=== PATIENT | male | born 1940 | race Caucasian/White ===

== ENCOUNTER → 2018-01-26 | Outpatient (CLI) | payer MEDICARE, OTHER ==
[~2018-01-26] MED LIST: ALPRAZOLAM0.5 M3 PO; ASPIRIN81 M1 PO
== END | disposition home or self-care (01) ==
LOC: US 02:09
DX: R10.10 Upper abdominal pain, unspecified (principal); R19.8 Other specified symptoms and signs involving the digestive system and abdomen; K21.9 Gastro-esophageal reflux disease without esophagitis; Z86.010 Personal history of colon polyps

== ENCOUNTER → 2018-03-20 | Day surgery (SDC) | payer MEDICARE, OTHER ==
[~2018-03-20] VITALS: Ht 185.4 cm; Wt 83.9 kg
[~2018-03-20] MED LIST changes: +CARDIZEM LA180 MG PO; +ELIQUIS5 M1 PO
--- NOTE | ~2018-03-20 | PROC NOTE ---
[place], [place] PROCEDURE NOTE NAME: [facility] #: [id number] UNIT #: [id number] ROOM: DOCTOR: BLAIR PRAKASH MD BIRTHDATE: [birth year] DOS: 03/20/2018 PROCEDURES: 1. Esophagogastroduodenoscopy and biopsy. 2. Colonoscopy. INDICATIONS: Abdominal pain, GERD and history of colon polyps. An informed consent was obtained from the patient after indication of procedures, the alternatives and potential complications were explained to him. PROCEDURE MEDICATION: Sedation was administered by Anesthesiology Department. Scope used for upper endoscopy, Olympus diagnostic adult upper endoscope GIF-180, that insertion was to the descending duodenum. For the colonoscopy, Olympus diagnostic adult colonoscope GIF-180 variable stiffness that insertion was to the cecum, which was identified by the usual landmarks, the appendiceal orifice, ileocecal valve and triangular fold, in addition to transillumination in the right lower quadrant. FINDINGS: After adequate sedation, the patient was placed in left lateral decubitus position. Upper endoscopy was performed first. The scope was introduced under direct visualization through the upper esophageal sphincter into the esophagus. Esophageal mucosa appeared normal with no ulcerations or strictures. Lower esophageal sphincter was identified at 40 cm from incisors. The stomach was then intubated. Gastric mucosa inspected. Severe gastritis was seen with no discrete ulcers or active bleeding. A SAFIA test was performed from gastric antrum and body. Retroflexed views fundus showed no hiatal hernias. The pylorus was intubated easily. The duodenal bulb and descending duodenum were within normal range. The scope was then withdrawn after the stomach was decompressed. I then proceeded with the colonoscopy. Rectal examination showed a diminished sphincter tone and no external hemorrhoids. Scope was introduced into the rectum, then advanced to the cecum with slight difficulty due to looping in the left colon. The prep was adequate. Multiple diverticula were seen in the left colon as well as in the ascending colon consistent with moderate diverticular disease. The remaining colon mucosa appeared normal with no evidence of polyps, ulcerations or obstructing lesions. Retroflexed views in the rectum showed grade 2 internal hemorrhoids. The scope was then withdrawn after the rectum was decompressed. The patient tolerated the procedures well. IMPRESSION: 1. Gastritis, SAFIA test performed. 2. Moderate diverticular disease. 3. Hiatal hernia. 4. Normal colon mucosa otherwise. PLAN: We will review the SAFIA test results and treat the patient accordingly. Repeat screening colonoscopy is advised in 5 years. Office followup will be scheduled in 2-3 weeks. [place], [place] PROCEDURE NOTE NAME: [facility] UNIT #: [id number] ROOM: DOCTOR: BLAIR PRAKASH MD BIRTHDATE: [birth year] BLAIR PRAKASH MD CM:PROCNOTE:PROCEDURE NOTE [id number] VANDANA PRAKASH MD
[2018-03-20 08:08] VITALS: BP 117/69
[2018-03-20 08:44] VITALS: BP 112/55
[2018-03-20 08:54] VITALS: BP 119/71
[2018-03-20 09:09] VITALS: BP 126/72
== END | disposition home or self-care (01) ==
LOC: SDC 03-17 08:00
DX: K29.70 Gastritis, unspecified, without bleeding (principal); K57.30 Diverticulosis of large intestine without perforation or abscess without bleeding; K44.9 Diaphragmatic hernia without obstruction or gangrene; K64.8 Other hemorrhoids; I48.91 Unspecified atrial fibrillation; Z82.49 Family history of ischemic heart disease and other diseases of the circulatory system; Z87.891 Personal history of nicotine dependence; K21.9 Gastro-esophageal reflux disease without esophagitis; Z86.010 Personal history of colon polyps; F41.9 Anxiety disorder, unspecified; I10 Essential (primary) hypertension; Z79.899 Other long term (current) drug therapy

== ENCOUNTER → 2018-04-07 | Outpatient (CLI) | payer MEDICARE, OTHER ==
[2018-04-07 14:53] LABS: CREATININE 0.84 mg/dL (0.70-1.30)
== END | disposition home or self-care (01) ==
LOC: LAB 14:10
PROVIDERS: Nurse Practitioner Family
DX: R10.10 Upper abdominal pain, unspecified (principal)

== ENCOUNTER → 2018-04-08 | Outpatient (CLI) | payer MEDICARE, OTHER | END | disposition home or self-care (01) | LOC: LAB 01:08 → CT 01:08 | DX: N28.1 Cyst of kidney, acquired (principal); N20.1 Calculus of ureter; K57.30 Diverticulosis of large intestine without perforation or abscess without bleeding; I25.10 Atherosclerotic heart disease of native coronary artery without angina pectoris; R11.0 Nausea; I10 Essential (primary) hypertension ==

== ENCOUNTER → 2018-07-23 | Outpatient (CLI) | payer MEDICARE, OTHER ==
[~2018-07-23] MED LIST changes: +METOPROLOL SUCC25 M2 PO
== END | disposition home or self-care (01) ==
LOC: LAB 02:07 → SDC 11:00 → EDSTATUS 11:00
PROVIDERS: Family Medicine
DX: E04.1 Nontoxic single thyroid nodule (principal); I10 Essential (primary) hypertension; K21.9 Gastro-esophageal reflux disease without esophagitis; I48.91 Unspecified atrial fibrillation; Z95.0 Presence of cardiac pacemaker; Z98.890 Other specified postprocedural states

== ENCOUNTER → 2018-09-02 | Outpatient (CLI) | payer MEDICARE, OTHER | END | disposition home or self-care (01) | LOC: RAD 13:59 | DX: M43.12 Spondylolisthesis, cervical region (principal) ==

== ENCOUNTER → 2019-07-27 | Outpatient (CLI) | payer MEDICARE, OTHER | END | disposition home or self-care (01) | LOC: CT 13:00 | DX: H90.41 Sensorineural hearing loss, unilateral, right ear, with unrestricted hearing on the contralateral side (principal) ==

== ENCOUNTER 2019-09-15 21:36 | Inpatient (IN) | payer MEDICARE, OTHER ==
[~2019-09-15] VITALS: Ht 182.9 cm; Wt 86.7 kg
[2019-09-15 21:36] VITALS: BP 168/83
[2019-09-15] MEDS ORDERED: HYDROXYZINE PAM25 M1 PO (21:45)
[2019-09-15] MEDS ORDERED: DILTIAZEM 24HR180 MG PO (21:46)
[2019-09-15] MEDS ORDERED: RANITIDINE HCL150 M1 PO (21:49)
[2019-09-15] MEDS ORDERED: OMEPRAZOLE40 MG PO (21:49)
--- NOTE | 2019-09-15 21:50 | NUR ---
PT REPORTS TAKING ATARAX BID TODAY.LAST DOSE @ 1800.
[2019-09-15 21:54] LABS: BASO # 0.1 10*3/uL (0.0-0.1); BASO % 1.1 % (0.0-1.0); EOS # 0.1 10*3/uL (0.0-0.4); HEMATOCRIT 42.1 % (42.0-52.0); HEMOGLOBIN 13.6 g/dl (14.0-18.0); LYMPH # 1.8 10*3/uL (1.3-4.4); LYMPH % 33.6 % (27.0-41.0); MEAN CELL VOLUME 90.3 fl (80.0-94.0); MEAN CORPUSCULAR HGB 29.2 pg (27.0-31.0); MEAN CORPUSCULAR HGB CONC 32.3 g/dl (33.0-37.0); MEAN PLATELET VOLUME 9.1 fl (9.6-12.3); MONO # 0.8 10*3/uL (0.1-1.0); MONO % 14.4 % (3.0-9.0); NEUT # 2.7 10*3/uL (2.3-7.9); NEUT % 48.5 % (47.0-73.0); PLATELET COUNT AUTOMATED 227 10*3/uL (130-400); RED BLOOD COUNT 4.66 10*6/uL (4.50-5.90); RED CELL DISTRI WIDTH 12.8 % (0-14.5); WHITE BLOOD COUNT 5.5 10*3/uL (4.8-10.8)
[2019-09-15 22:05] LABS: ACT PARTIAL THROMBO TIME 26.2 SECONDS (20.0-32.1)
[2019-09-15 22:10] LABS: ALKALINE PHOSPHATASE 60 U/L (45-117); BUN 15 mg/dl (7-24); CHLORIDE 104 mmol/L (98-107); CREATININE 0.95 mg/dL (0.70-1.30); POTASSIUM 3.5 mmol/L (3.5-5.1); SGOT/AST 33 IU/L (3-35); SGPT/ALT 47 U/L (12-78); SODIUM 140 mmol/L (136-145); TOTAL PROTEIN 7.3 gm/dL (6.4-8.2)
[2019-09-15 22:12] LABS: TROPONIN I < 0.015 ng/ml (<0.045)
[2019-09-15 22:29] VITALS: BP 176/83
[2019-09-15 22:52] VITALS: BP 175/79
[2019-09-15 23:31] VITALS: BP 152/69
[2019-09-16] VITALS (7 sets, daily range): BP systolic 125–172; BP diastolic 67–80
--- NOTE | 2019-09-16 00:40 | NUR ---
A 79, admitted to 5E, under the services of LUCIANA Correa DO with a diagnosis of HYPERTENSION URGENCY, CHEST PAIN. Chief complaint is CHEST PAIN. Patient arrived via stretcher from ER. Monitor applied. Initial assessment completed. Vital signs taken and recorded. LUCIANA CORREA DO notified of admission to the unit. Orders received. See assessment for past medical history, medications and allergies. Patient and/or family oriented to unit. [facility] visitation policy reviewed. Clothing/patient valuable form completed. JESSICA CAREY
--- NOTE | 2019-09-16 08:10 | NUR ---
PATIENT MEDICATED WITH PO XANAX AT THIS TIME PER ORDER FOR COMPLAINTS OF ANXIETY. WILL MONITOR FOR EFFECTIVENESS.
--- NOTE | 2019-09-16 09:00 | NUR ---
PATIENT STATES THAT XANAX HAS BEEN EFFECTIVE. MUCH MORE RELAXED AT THIS TIME.
--- NOTE | 2019-09-16 15:34 | NUR ---
PATIENT C/O ANXIETY AT THIS TIME AND REQESTING PRN MEDICATION. MEDICATED WITH VISTARIL PER ORDER. WILL MONITOR FOR EFFECTIVENESS.
--- NOTE | 2019-09-16 16:45 | NUR ---
PATIENT APPEARS MUCH MORE RELAXED AND DENIES AGITATION AT THIS TIME. MEDICATION EFFECTIVE.
--- NOTE | 2019-09-16 20:24 | NUR ---
PATIENT REQUESTED A VISTARIL. WAS GIVEN. WILL MONITOR.
--- NOTE | 2019-09-16 22:00 | NUR ---
PATIENT RESTING, NO SIGNS OF DISTRESS. VISTRAIL EFFECTIVE.
[2019-09-17] VITALS: BP 133/66
[2019-09-17 06:42] LABS: BASO # 0.1 10*3/uL (0.0-0.1); BASO % 0.7 % (0.0-1.0); EOS # 0.1 10*3/uL (0.0-0.4); EOS % 1.3 % (1.0-4.0); HEMATOCRIT 41.8 % (42.0-52.0); HEMOGLOBIN 13.4 g/dl (14.0-18.0); LYMPH # 1.6 10*3/uL (1.3-4.4); LYMPH % 22.1 % (27.0-41.0); MEAN CELL VOLUME 90.7 fl (80.0-94.0); MEAN CORPUSCULAR HGB 29.1 pg (27.0-31.0); MEAN CORPUSCULAR HGB CONC 32.1 g/dl (33.0-37.0); MEAN PLATELET VOLUME 9.3 fl (9.6-12.3); MONO # 0.8 10*3/uL (0.1-1.0); MONO % 10.8 % (3.0-9.0); NEUT # 4.7 10*3/uL (2.3-7.9); NEUT % 64.8 % (47.0-73.0); PLATELET COUNT AUTOMATED 225 10*3/uL (130-400); RED BLOOD COUNT 4.61 10*6/uL (4.50-5.90); WHITE BLOOD COUNT 7.2 10*3/uL (4.8-10.8)
[2019-09-17 06:49] LABS: BUN 23 mg/dl (7-24); CHLORIDE 106 mmol/L (98-107); CHOLESTEROL 233 mg/dL (<200); CREATININE 0.94 mg/dL (0.70-1.30); PHOSPHOROUS 2.9 mg/dL (2.5-4.9); POTASSIUM 4.2 mmol/L (3.5-5.1); SODIUM 140 mmol/L (136-145); TRIGLYCERIDES 288 mg/dl (<150); VLDL CHOLESTEROL 58 mg/dL (6-40)
[2019-09-17 06:51] LABS: HDL CHOLESTEROL 35 mg/dl (40-60); LDL CHOLESTEROL 140 mg/dL (9-159)
[2019-09-17 08:00] VITALS: BP 110/62
--- NOTE | 2019-09-17 08:21 | NUR ---
XANAX PER REQUEST
--- NOTE | 2019-09-17 09:00 | NUR ---
Deputy Sheriff Generalist/Bailiff in to see patient. He is ambulating in his room, packing his bag. He is discharged. Discussed any home care needs and he denies at this time.
[2019-09-17] MEDS ORDERED: LISINOPRIL5 MG PO (10:22)
--- NOTE | 2019-09-17 10:59 | NUR ---
DC TO HOME
== END 2019-09-17 10:59 | disposition home or self-care (01) | DRG 305 ==
LOC: ED 21:36 → 5E 09-16 00:05 → EDHOLD 09-16 00:05 → 5E 09-16 00:19
PROVIDERS: Emergency Medicine; Student in an Organized Health Care Education/Training Program; ADMIT Internal Medicine
DX: I16.0 Hypertensive urgency (principal); I50.32 Chronic diastolic (congestive) heart failure; K21.9 Gastro-esophageal reflux disease without esophagitis; F41.1 Generalized anxiety disorder; Z95.0 Presence of cardiac pacemaker; I11.0 Hypertensive heart disease with heart failure; R73.9 Hyperglycemia, unspecified; D64.9 Anemia, unspecified; E66.3 Overweight; I48.0 Paroxysmal atrial fibrillation; E78.5 Hyperlipidemia, unspecified; Z83.3 Family history of diabetes mellitus; Z82.49 Family history of ischemic heart disease and other diseases of the circulatory system; Z84.89 Family history of other specified conditions; Z68.25 Body mass index [BMI] 25.0-25.9, adult

== ENCOUNTER → 2019-10-11 | Outpatient (CLI) | payer MEDICARE, OTHER ==
[~2019-10-11] MED LIST changes: +DILTIAZEM 24HR180 MG PO; +HYDROXYZINE PAM25 M1 PO; +LISINOPRIL5 MG PO; +OMEPRAZOLE40 MG PO; +RANITIDINE HCL150 M1 PO
[2019-10-11 15:18] LABS: BUN 19 mg/dl (7-24)
[2019-10-11 15:31] LABS: CREATININE 0.97 mg/dL (0.70-1.30)
[2019-10-12 07:10] LABS: THYROID PEROXIDASE (TPO) AB 7 IU/mL (0-34)
[2019-10-12 08:12] LABS: IMMUNOGLOBULIN G, QNT 899 mg/dL (700-1600); IMMUNOGLOBULIN M, QNT 48 mg/dL (15-143)
[2019-10-12 15:07] LABS: THYROGLOBULIN ANTIBODY <1.0 IU/mL (0.0-0.9)
== END | disposition home or self-care (01) ==
LOC: LAB 14:13
PROVIDERS: Psychiatry & Neurology Neurology
DX: Z13.89 Encounter for screening for other disorder (principal); R20.0 Anesthesia of skin; R20.2 Paresthesia of skin; R29.2 Abnormal reflex; M25.50 Pain in unspecified joint

== ENCOUNTER → 2019-10-18 | Outpatient (CLI) | payer MEDICARE, OTHER | END | disposition home or self-care (01) | LOC: CT 00:56 | DX: I10 Essential (primary) hypertension (principal); H93.A1 Pulsatile tinnitus, right ear ==

== ENCOUNTER 2021-09-11 06:36 | Emergency (ER) | payer MEDICARE, OTHER ==
[~2021-09-11] VITALS: Ht 185.4 cm; Wt 83.9 kg
[2021-09-11 07:18] VITALS: BP 160/70
[2021-09-11 07:59] LABS: BILIRUBIN Negative (Negative); BLOOD Negative (Negative); CLARITY Clear (Clear); COLOR Yellow (Yellow); GLUCOSE Negative (Negative); KETONE Negative (Negative); LEUKO ESTERASE Negative (Negative); NITRITE Negative (Negative); SPECIFIC GRAVITY <= 1.005 (1.001-1.030); UROBILINOGEN 0.2 E.U./dl (0.0-1.0)
[2021-09-11 08:06] LABS: BACTERIA TRACE; EPITHELIAL CELLS 0-2
[2021-09-11 08:23] LABS: BASO # 0.1 10*3/uL (0.0-0.1); EOS % 0.8 % (1.0-4.0); HEMATOCRIT 44.4 % (42.0-52.0); LYMPH # 1.3 10*3/uL (1.3-4.4); LYMPH % 25.5 % (27.0-41.0); MEAN CELL VOLUME 88.8 fl (80.0-94.0); MEAN CORPUSCULAR HGB 28.4 pg (27.0-31.0); MEAN PLATELET VOLUME 8.7 fl (9.6-12.3); MONO # 0.5 10*3/uL (0.1-1.0); MONO % 9.2 % (3.0-9.0); NEUT # 3.2 10*3/uL (2.3-7.9); NEUT % 63.3 % (47.0-73.0); PLATELET COUNT AUTOMATED 242 10*3/uL (130-400); RED CELL DISTRI WIDTH 12.3 % (0-14.5)
[2021-09-11 08:39] LABS: ALBUMIN 3.8 gm/dl (3.1-4.5); ALKALINE PHOSPHATASE 60 U/L (45-117); BUN 14 mg/dl (7-24); CHLORIDE 109 mmol/L (98-107); CREATININE 0.87 mg/dL (0.70-1.30); LIPASE 111 U/L (73-393); POTASSIUM 3.8 mmol/L (3.5-5.1); SGOT/AST 17 IU/L (3-35); SGPT/ALT 26 U/L (12-78); SODIUM 142 mmol/L (136-145); TOTAL PROTEIN 7.6 gm/dL (6.4-8.2)
[2021-09-11] MEDS ORDERED: CIPRO500 MG PO (11:42)
== END 2021-09-11 11:52 | disposition home or self-care (01) ==
LOC: ED 06:36
PROVIDERS: Emergency Medicine
DX: R30.0 Dysuria (principal); R35.0 Frequency of micturition; Z79.899 Other long term (current) drug therapy

== ENCOUNTER → 2022-03-25 | Outpatient (CLI) | payer MEDICARE, OTHER ==
[~2022-03-25] MED LIST changes: +CIPRO500 MG PO
[2022-03-25 12:45] LABS: BILIRUBIN Negative (Negative); BLOOD Negative (Negative); CLARITY Clear (Clear); COLOR Yellow (Yellow); GLUCOSE Negative (Negative); KETONE Negative (Negative); LEUKO ESTERASE 1+ (Negative); NITRITE Negative (Negative)
[2022-03-25 12:53] LABS: BACTERIA 1+; EPITHELIAL CELLS 0-2; MUCOUS 3+
[2022-03-30 20:07] LABS: % FREE PSA 27.3 % (.); FREE PSA 1.54 ng/mL (.)
== END | disposition home or self-care (01) ==
LOC: LAB 12:09
PROVIDERS: ATTEND Nurse Practitioner Family
DX: R30.0 Dysuria (principal); N40.1 Benign prostatic hyperplasia with lower urinary tract symptoms

== ENCOUNTER → 2022-04-12 | Outpatient (CLI) | payer MEDICARE, OTHER | END | disposition home or self-care (01) | LOC: US 12:48 | PROVIDERS: ATTEND Urology | DX: N50.3 Cyst of epididymis (principal) ==

== ENCOUNTER → 2022-05-02 | Outpatient (CLI) | payer MEDICARE, OTHER ==
[2022-05-02 09:03] LABS: BUN 20 mg/dl (7-24); CREATININE 0.87 mg/dL (0.70-1.30)
== END | disposition home or self-care (01) ==
LOC: LAB 01:20 → CT 09:00 → LAB 09:00
PROVIDERS: ATTEND Nurse Practitioner Family
DX: N20.0 Calculus of kidney (principal); N28.1 Cyst of kidney, acquired; K57.30 Diverticulosis of large intestine without perforation or abscess without bleeding; R31.29 Other microscopic hematuria; K86.89 Other specified diseases of pancreas

== ENCOUNTER → 2023-01-28 | Outpatient (CLI) | payer MEDICARE ==
[2023-01-28 12:03] LABS: EOS % 0.5 % (1.0-4.0); HEMATOCRIT 41.2 % (42.0-52.0); LYMPH # 1.1 10*3/uL (1.3-4.4); LYMPH % 25.5 % (27.0-41.0); MEAN CELL VOLUME 91.2 fl (80.0-94.0); MEAN CORPUSCULAR HGB 29.2 pg (27.0-31.0); MEAN PLATELET VOLUME 8.8 fl (9.6-12.3); MONO # 0.5 10*3/uL (0.1-1.0); MONO % 11.3 % (3.0-9.0); NEUT # 2.6 10*3/uL (2.3-7.9); NEUT % 61.7 % (47.0-73.0); PLATELET COUNT AUTOMATED 210 10*3/uL (130-400); RED BLOOD COUNT 4.52 10*6/uL (4.50-5.90); RED CELL DISTRI WIDTH 13.2 % (0-14.5); WHITE BLOOD COUNT 4.2 10*3/uL (4.8-10.8)
[2023-01-28 12:26] LABS: ALKALINE PHOSPHATASE 55 U/L (46-116); BUN 20 mg/dl (9-23); CHLORIDE 103 mmol/L (98-107); SGPT/ALT 22 U/L (10-49); TOTAL PROTEIN 6.6 gm/dL (6.0-8.0)
== END | disposition home or self-care (01) ==
LOC: LAB 11:38
PROVIDERS: ATTEND Specialist
DX: M25.50 Pain in unspecified joint (principal)

== ENCOUNTER → 2023-06-26 | Outpatient (CLI) | payer MEDICARE ==
[2023-06-26 14:01] LABS: BILIRUBIN Negative (Negative); BLOOD Negative (Negative); CLARITY Clear (Clear); COLOR Yellow (Yellow); GLUCOSE Negative (Negative); KETONE Negative (Negative); LEUKO ESTERASE Trace (Negative); NITRITE Negative (Negative); PH 5.5 (4.5-8.0)
[2023-06-26 14:09] LABS: BACTERIA TRACE; RBC 0-2 rbc/hpf (0-2)
== END | disposition home or self-care (01) ==
LOC: LAB 13:22
PROVIDERS: ATTEND Nurse Practitioner Family
DX: R31.29 Other microscopic hematuria (principal); R97.20 Elevated prostate specific antigen [PSA]

== ENCOUNTER → 2024-01-19 | Outpatient (CLI) | payer MEDICARE ==
[2024-01-19 13:05] LABS: BILIRUBIN Negative (Negative); BLOOD Negative (Negative); CLARITY Clear (Clear); COLOR Yellow (Yellow); GLUCOSE Negative (Negative); KETONE Negative (Negative); LEUKO ESTERASE Negative (Negative); NITRITE Negative (Negative); SPECIFIC GRAVITY 1.015 (1.001-1.030); UROBILINOGEN 0.2 E.U./dl (0.0-1.0)
[2024-01-19 13:14] LABS: EPITHELIAL CELLS 0-2; WBC 0-2 wbc/hpf (0-5)
[2024-01-19 13:15] LABS: RBC 0-2 rbc/hpf (0-2)
== END | disposition home or self-care (01) ==
LOC: LAB 12:23
PROVIDERS: ATTEND Nurse Practitioner Family
DX: R31.29 Other microscopic hematuria (principal); R97.20 Elevated prostate specific antigen [PSA]

== ENCOUNTER 2024-04-29 14:00 | Emergency (ER) | payer MEDICARE ==
[~2024-04-29] VITALS: Ht 182.8 cm; Wt 81.6 kg
[2024-04-29 14:08] VITALS: BP 116/77
[2024-04-29] MEDS ORDERED: ALFUZOSIN HCL E10 MG PO (14:39)
[2024-04-29 14:59] LABS: BASO % 0.8 % (0.0-1.0); EOS # 0.1 10*3/uL (0.0-0.4); EOS % 1.5 % (1.0-4.0); LYMPH # 1.3 10*3/uL (1.3-4.4); LYMPH % 27.8 % (27.0-41.0); MEAN CELL VOLUME 91.5 fl (80.0-94.0); MEAN CORPUSCULAR HGB 29.4 pg (27.0-31.0); MEAN CORPUSCULAR HGB CONC 32.1 g/dl (33.0-37.0); MONO # 0.6 10*3/uL (0.1-1.0); MONO % 12.7 % (3.0-9.0); NEUT # 2.7 10*3/uL (2.3-7.9); PLATELET COUNT AUTOMATED 207 10*3/uL (130-400); RED BLOOD COUNT 4.59 10*6/uL (4.50-5.90); RED CELL DISTRI WIDTH 12.4 % (0-14.5); WHITE BLOOD COUNT 4.7 10*3/uL (4.8-10.8)
[2024-04-29 15:22] LABS: BUN 21 mg/dl (9-23); CHLORIDE 105 mmol/L (98-107); POTASSIUM 4.2 mmol/L (3.4-5.1)
== END 2024-04-29 17:28 | disposition home or self-care (01) ==
LOC: ED 14:00
PROVIDERS: Emergency Medicine
DX: R00.2 Palpitations (principal); F41.9 Anxiety disorder, unspecified; I48.91 Unspecified atrial fibrillation; K21.9 Gastro-esophageal reflux disease without esophagitis; I10 Essential (primary) hypertension; E78.5 Hyperlipidemia, unspecified; D64.9 Anemia, unspecified; Z98.890 Other specified postprocedural states

== ENCOUNTER 2025-01-05 11:24 | Emergency (ER) | payer MEDICARE ==
[~2025-01-05] VITALS: Ht 182.8 cm; Wt 79.4 kg
[~2025-01-05 11:24] MED LIST changes: +ALFUZOSIN HCL E10 MG PO
[2025-01-05] MEDS ORDERED: LORazepam 1 MG TAB PO ONE (11:50)
[2025-01-05 12:35] VITALS: BP 158/75
[2025-01-05 12:40] LABS: BASO % 0.7 % (0.0-1.0); EOS % 0.2 % (1.0-4.0); HEMATOCRIT 43.8 % (42.0-52.0); MEAN CELL VOLUME 90.7 fl (80.0-94.0); MONO # 0.4 10*3/uL (0.1-1.0); MONO % 8.5 % (3.0-9.0); NEUT % 69.4 % (47.0-73.0); PLATELET COUNT AUTOMATED 214 10*3/uL (130-400); RED BLOOD COUNT 4.83 10*6/uL (4.50-5.90); RED CELL DISTRI WIDTH 12.3 % (0-14.5); WHITE BLOOD COUNT 4.3 10*3/uL (4.8-10.8)
[2025-01-05 13:00] LABS: BUN 18 mg/dl (9-23); CHLORIDE 106 mmol/L (98-107); POTASSIUM 3.9 mmol/L (3.4-5.1)
== END 2025-01-05 13:24 | disposition home or self-care (01) ==
LOC: ED 11:24
PROVIDERS: Emergency Medicine
DX: R42 Dizziness and giddiness (principal); F41.9 Anxiety disorder, unspecified; I11.0 Hypertensive heart disease with heart failure; I50.9 Heart failure, unspecified; E78.5 Hyperlipidemia, unspecified; I48.91 Unspecified atrial fibrillation; Z95.5 Presence of coronary angioplasty implant and graft; Z98.890 Other specified postprocedural states

== ENCOUNTER 2025-05-03 09:21 | Emergency (ER) | payer MEDICARE ==
[~2025-05-03] VITALS: Ht 185.4 cm; Wt 81.6 kg
[2025-05-03] MEDS ORDERED: MORPHINE Sulfate 2 MG/ML SYR IV ONE (09:35)
[2025-05-03] MEDS ORDERED: FAMOTIDINE 50 ML IV ONE (09:35)
[2025-05-03] MEDS ORDERED: Ondansetron Hydrochloride 4 MG/2 ML VIAL IV ONE (09:35)
[2025-05-03 09:54] LABS: BASO % 0.3 % (0.0-1.0); EOS % 0.3 % (1.0-4.0); HEMATOCRIT 44.5 % (42.0-52.0); MEAN CELL VOLUME 90.1 fl (80.0-94.0); MEAN CORPUSCULAR HGB 28.7 pg (27.0-31.0); MEAN CORPUSCULAR HGB CONC 31.9 g/dl (33.0-37.0); MEAN PLATELET VOLUME 8.8 fl (9.6-12.3); MONO # 0.8 10*3/uL (0.1-1.0); MONO % 7.9 % (3.0-9.0); NEUT # 7.4 10*3/uL (2.3-7.9); PLATELET COUNT AUTOMATED 261 10*3/uL (130-400); RED BLOOD COUNT 4.94 10*6/uL (4.50-5.90); RED CELL DISTRI WIDTH 12.6 % (0-14.5); WHITE BLOOD COUNT 9.5 10*3/uL (4.8-10.8)
[2025-05-03 10:09] LABS: ACT PARTIAL THROMBO TIME 25.9 SECONDS (20.0-32.1)
[2025-05-03 10:16] LABS: ALKALINE PHOSPHATASE 57 U/L (46-116); BUN 20 mg/dl (9-23); CHLORIDE 99 mmol/L (98-107); POTASSIUM 4.2 mmol/L (3.4-5.1); SGPT/ALT 30 U/L (5-49); TOTAL PROTEIN 7.3 gm/dL (6.0-8.0)
[2025-05-03 10:27] VITALS: BP 165/69
== END 2025-05-03 10:35 | disposition home or self-care (01) ==
LOC: ED 09:21
PROVIDERS: Emergency Medicine
DX: R07.89 Other chest pain (principal); M54.2 Cervicalgia; I11.0 Hypertensive heart disease with heart failure; I50.9 Heart failure, unspecified; E78.5 Hyperlipidemia, unspecified; Z79.899 Other long term (current) drug therapy; Z98.890 Other specified postprocedural states

== ENCOUNTER 2025-09-06 12:40 | Emergency (ER) | payer MEDICARE ==
[~2025-09-06] VITALS: Wt 78.5 kg
[2025-09-06 12:49] VITALS: BP 152/72
[2025-09-06 13:15] LABS: BASO # 0.1 10*3/uL (0.0-0.1); BASO % 1.2 % (0.0-1.0); EOS # 0.0 10*3/uL (0.0-0.4); EOS % 0.4 % (1.0-4.0); MEAN CELL VOLUME 92.7 fl (80.0-94.0); MEAN CORPUSCULAR HGB 28.9 pg (27.0-31.0); MEAN PLATELET VOLUME 9.1 fl (9.6-12.3); MONO # 0.5 10*3/uL (0.1-1.0); MONO % 11.0 % (3.0-9.0); NEUT # 3.2 10*3/uL (2.3-7.9); NEUT % 65.7 % (47.0-73.0); NUCLEATED RED BLOOD CELL 0.0 % (0.0-0.0); NUCLEATED RED BLOOD CELL 0.0 10*3/uL (0.0-0.0); PLATELET COUNT AUTOMATED 198 10*3/uL (130-400); RED CELL DISTRI WIDTH 12.4 % (0-14.5)
[2025-09-06 13:26] LABS: ACT PARTIAL THROMBO TIME 27.2 SECONDS (20.0-32.1)
[2025-09-06 13:36] LABS: BUN 18 mg/dl (9-23)
[2025-09-06] MEDS ORDERED: CARDIZEM60 MG PO (17:24)
== END 2025-09-06 17:53 | disposition home or self-care (01) ==
LOC: ED 12:40
PROVIDERS: Nurse Practitioner Family
DX: I49.3 Ventricular premature depolarization (principal); R00.2 Palpitations; I10 Essential (primary) hypertension; I48.91 Unspecified atrial fibrillation; Z88.8 Allergy status to other drugs, medicaments and biological substances